=== PATIENT | female | born 1960 | race Caucasian/White ===

== ENCOUNTER 2023-10-01 15:06 | Outpatient (CLI) | payer OTHER, SELFPAY | END 2023-10-01 15:07 | disposition home or self-care (01) | LOC: LKVREF 15:06 | PROVIDERS: PCP Emergency Medicine; Visit Provider Emergency Medicine | DX: I10 Essential (primary) hypertension (principal); E78.5 Hyperlipidemia, unspecified | CPT/HCPCS: 80048 ==

== ENCOUNTER 2023-10-23 13:58 | Outpatient (CLI) | payer OTHER, SELFPAY ==
--- NOTE | 2023-10-23 14:40 | MM_ITS ---
Patient: ELLE BARNHART Facility:?[facility] Patient ID:?[id number] Site Patient ID:?[id number] Site :?[id number] Study:?XRay-Breast Bilateral 3D W/CAD-10/23/2023 11:15:08 AM Ordering Physician:Marcy Final Report: BILATERAL SCREENING MAMMOGRAM WITH COMPUTER-AIDED DETECTION AND TOMOSYNTHESIS TECHNIQUE: CC and MLO views were obtained. These mammographic images have been obtained using full-field digital technique. These mammographic images were interpreted with the benefit of computer-aided detection. Breast Tomosynthesis was used in this interpretation. COMPARISON FILM: No priors available. FINDINGS: The breasts are heterogeneously dense, which may obscure small masses IMPRESSION: There is no radiographic evidence for malignancy. ASSESSMENT: BI-RADS Category 1: Negative RECOMMENDATION: Routine screening mammogram in 1 year. A lay language report of this examination will be provided to the patient. Julián Vasquez M.D. Diagnostic Radiologist [email or web address] BAIRON/huseyin R/ Transcribed: 3:18 p.m. MARY/Dictated by: Julián Vasquez MD @ 11/10/2023 11:38:00 AM Signed by:?Julián Vasquez MD @11/10/2023 3:41:59 PM (Electronic Signature)
== END 2023-10-23 13:59 | disposition home or self-care (01) ==
LOC: MAMMO 13:59
PROVIDERS: PCP Emergency Medicine; Visit Provider Emergency Medicine
DX: Z12.31 Encounter for screening mammogram for malignant neoplasm of breast (principal); R92.2 Inconclusive mammogram
CPT/HCPCS: 77063; 77067

== ENCOUNTER 2024-02-23 08:12 | Outpatient (CLI) | payer OTHER, SELFPAY | END 2024-02-23 08:13 | disposition home or self-care (01) | LOC: NFLDREF 02-25 14:04 | PROVIDERS: PCP Emergency Medicine; Referring Provider Emergency Medicine; Visit Provider Emergency Medicine | DX: Z13.1 Encounter for screening for diabetes mellitus (principal); E78.5 Hyperlipidemia, unspecified | CPT/HCPCS: 80061; 82947 ==

== ENCOUNTER 2024-03-17 13:50 | Outpatient (CLI) | payer OTHER, SELFPAY ==
--- NOTE | 2024-03-17 14:00 | CRLHL7_ITS ---
For Patients: As a result of the Century Cures Act, medical imaging exams and procedure reports are released immediately into your electronic medical record. You may view this report before your referring provider. If you have questions, please contact your health care provider. DXA BONE MINERAL DENSITY STUDY Current height (in): 62. Weight (lb): 130. Menopause age: 45. Ethnicity: White. 1. Have you had a previous hip or vertebral fracture? No. 2. Have you had any fractures during your adult life which did not result from significant trauma (e.g., auto accident)? No. 3. Did either of your parents have a hip fracture? No. 4. Do you smoke? No. 5. Have you ever taken Glucocorticoids? No. 6. Do you have rheumatoid arthritis? No. 7. Do you have secondary osteoporosis? No. 8. Do you drink 3 or more alcoholic drinks per day? No. 9. Are you being treated for osteoporosis? No. 10. Have you ever taken any of the following medications: Actonel, Evista, Fosamax, Miacalcin, Reclast, Boniva, Forteo, HRT (i.e. estrogen/hormone therapy), Protelos, Prolia, Vitamin D, Calcium, other ??? please specify. Yes, Vitamin D. 11. Do you have any of the following medical conditions: Anorexia or bulimia, asthma or emphysema, end stage renal disease, hyperparathyroidism, any seizure disorders, cancer, inflammatory bowel diseases, hysterectomy, other ??? please specify. No. 12. What was your maximum height (inches)? 62. 13. Do you perform weight bearing exercise regularly? Yes. 14. Do you regularly consume dairy products? Yes. 15. Do you drink caffeinated beverages? Yes. 16. At what age did your period start? 11. 17. Are you premenopausal? No. 18. How many full term pregnancies have you had? 2. 19. Have you ever missed your period for more than 6 months in a row (not including or menopause)? No. TECHNIQUE: Bone mineral density study was performed using the [employer]. FINDINGS: The results of the study expressed as bone mineral density (BMD) are as follows: Lumbar spine L1 to L4: BMD: 1.014 g/cm2. T-score: -0.3. Z-score: 1.5. Neck Left: BMD: 0.608 g/cm2. T-score: -2.2. Z-score: -0.6. Right: BMD: 0.660 g/cm2. T-score: -1.7. Z-score: -0.2. Total Left: BMD: 0.743 g/cm2. T-score: -1.6. Z-score: -0.4. Right: BMD: 0.755 g/cm2. T-score: -1.5. Z-score: -0.3. IMPRESSION: Osteopenia. FRAX 10-year Fracture Risk Major Osteoporotic Fracture: 11 percent Hip Fracture: 1.9 percent Reported Risk Factors: [place] () Neck BMD=0.608, BMI=23.8. Julián Vasquez M.D. Diagnostic Radiologist [email or web address] BAIRON/gracia DW/Dictated by: Julián Vasquez MD @ 03/17/2024 4:27:00 PM (Electronically Signed)
== END 2024-03-17 13:51 | disposition home or self-care (01) ==
LOC: RAD 13:51
PROVIDERS: PCP Emergency Medicine; Visit Provider Emergency Medicine
DX: Z78.0 Asymptomatic menopausal state (principal); M85.89 Other specified disorders of bone density and structure, multiple sites
CPT/HCPCS: 77080

== ENCOUNTER 2024-04-15 08:20 | Outpatient (CLI) | payer OTHER, SELFPAY | END 2024-04-15 08:21 | disposition home or self-care (01) | LOC: NFLDREF 04-16 10:32 | PROVIDERS: PCP Emergency Medicine; Referring Provider Emergency Medicine; Visit Provider Internal Medicine Nephrology | DX: N18.9 Chronic kidney disease, unspecified (principal); I10 Essential (primary) hypertension; R53.83 Other fatigue; E55.9 Vitamin D deficiency, unspecified; Z13.1 Encounter for screening for diabetes mellitus; Z13.6 Encounter for screening for cardiovascular disorders | CPT/HCPCS: 80069; 82043; 82306; 82570; 84550; 85610; 87077; 87086; 87186 ==

== ENCOUNTER 2024-05-10 08:39 | Outpatient (CLI) | payer OTHER, SELFPAY ==
--- NOTE | 2024-05-10 09:00 | CRLHL7_ITS ---
For Patients: As a result of the Century Cures Act, medical imaging exams and procedure reports are released immediately into your electronic medical record. You may view this report before your referring provider. If you have questions, please contact your health care provider. INDICATION: CKD. TECHNIQUE: Ultrasound renal and bladder complete. Cook-scale and color Doppler sonographic images were acquired of the kidneys and urinary bladder. COMPARISON: None. FINDINGS: Right kidney: 9.2 cm. Left kidney: 7.2 cm. Status post partial left nephrectomy. Normal echotexture and cortex. No suspicious masses, stones, or hydronephrosis. Small right renal cysts measuring up to 1.7 centimeter. Bladder: Normal in caliber and appearance. Color Doppler images demonstrate bilateral ureteral jets. Prevoid bladder volume of 107 milliliters. Postvoid residual of 25 milliliters. IMPRESSION: Status partial left nephrectomy. Small right renal cysts. Otherwise, normal sonographic appearance of the kidneys Dictated by Johny Calix MD @ 05/10/2024 12:42:52 PM (Electronically Signed)
== END 2024-05-10 08:40 | disposition home or self-care (01) ==
LOC: US 08:40
PROVIDERS: PCP Emergency Medicine; Visit Provider Internal Medicine Nephrology
DX: N18.9 Chronic kidney disease, unspecified (principal); N28.1 Cyst of kidney, acquired
CPT/HCPCS: 76770

== ENCOUNTER 2024-07-26 13:25 | Outpatient (CLI) | payer OTHER, SELFPAY | END 2024-07-26 13:26 | disposition home or self-care (01) | LOC: NFLDREF 07-29 08:09 | PROVIDERS: PCP Emergency Medicine; Referring Provider Emergency Medicine; Visit Provider Internal Medicine Nephrology | DX: I10 Essential (primary) hypertension (principal); N18.9 Chronic kidney disease, unspecified; D64.9 Anemia, unspecified; N13.9 Obstructive and reflux uropathy, unspecified; Z13.1 Encounter for screening for diabetes mellitus; Z13.6 Encounter for screening for cardiovascular disorders; Z13.820 Encounter for screening for osteoporosis | CPT/HCPCS: 80061; 80069; 82043; 82570; 82728; 83540; 83550; 83970; 84550; 87086; 87186 ==

== ENCOUNTER 2024-11-23 12:36 | Outpatient (CLI) | payer OTHER, SELFPAY ==
--- NOTE | 2024-11-23 13:00 | CRLHL7_ITS ---
For Patients: As a result of the Century Cures Act, medical imaging exams and procedure reports are released immediately into your electronic medical record. You may view this report before your referring provider. If you have questions, please contact your health care provider. BILATERAL SCREENING MAMMOGRAM WITH COMPUTER-AIDED DETECTION AND TOMOSYNTHESIS TECHNIQUE: CC and MLO views were obtained. These mammographic images have been obtained using full-field digital technique. These mammographic images were interpreted with the benefit of computer-aided detection. Breast Tomosynthesis was used in this interpretation. COMPARISON FILM: 10/23/23. FINDINGS: The breasts are extremely dense, which lowers the sensitivity of mammography. IMPRESSION: There is no radiographic evidence for malignancy. ASSESSMENT: BI-RADS Category 1: Negative RECOMMENDATION: Routine screening mammogram in 1 year. A lay language report of this examination will be provided to the patient. Julián Vasquez M.D. Diagnostic Radiologist [email or web address] SP/Dictated by: Julián Vasquez MD @ 11/24/2024 1:33:00 PM (Electronically Signed)
== END 2024-11-23 12:37 | disposition home or self-care (01) ==
LOC: MAMMO 12:37
PROVIDERS: PCP Emergency Medicine; Visit Provider Emergency Medicine
DX: Z12.31 Encounter for screening mammogram for malignant neoplasm of breast (principal); R92.343 Mammographic extreme density, bilateral breasts
CPT/HCPCS: 77063; 77067

== ENCOUNTER 2025-02-14 09:45 | Outpatient (CLI) | payer OTHER, SELFPAY | END 2025-02-14 09:46 | disposition home or self-care (01) | LOC: NFLDREF 19:52 | PROVIDERS: PCP Emergency Medicine; Referring Provider Emergency Medicine; Visit Provider Internal Medicine Nephrology | DX: I12.9 Hypertensive chronic kidney disease with stage 1 through stage 4 chronic kidney disease, or unspecified chronic kidney disease (principal); N18.32 Chronic kidney disease, stage 3b; N25.81 Secondary hyperparathyroidism of renal origin; D63.1 Anemia in chronic kidney disease; N30.00 Acute cystitis without hematuria; B96.20 Unspecified Escherichia coli [E. coli] as the cause of diseases classified elsewhere; Z79.899 Other long term (current) drug therapy | CPT/HCPCS: 80069; 82043; 82570; 82607; 82728; 83540; 83550; 83970; 84075; 84460; 84550; 86140; 87086 ==

== ENCOUNTER 2025-03-29 09:41 | Outpatient (CLI) | payer OTHER, SELFPAY | END 2025-03-29 09:42 | disposition home or self-care (01) | PROVIDERS: PCP Emergency Medicine; Visit Provider Emergency Medicine | DX: E78.2 Mixed hyperlipidemia (principal); E55.9 Vitamin D deficiency, unspecified; Z13.1 Encounter for screening for diabetes mellitus | CPT/HCPCS: 80061; 82306; 82947 ==

== ENCOUNTER 2025-04-11 10:00 | Outpatient (CLI) | payer OTHER, SELFPAY | END 2025-04-11 10:01 | disposition home or self-care (01) | LOC: NFLDREF 04-12 15:48 | PROVIDERS: PCP Emergency Medicine; Referring Provider Emergency Medicine; Visit Provider Internal Medicine Nephrology | DX: I12.9 Hypertensive chronic kidney disease with stage 1 through stage 4 chronic kidney disease, or unspecified chronic kidney disease (principal); N18.4 Chronic kidney disease, stage 4 (severe); N30.00 Acute cystitis without hematuria; B96.89 Other specified bacterial agents as the cause of diseases classified elsewhere | CPT/HCPCS: 80069; 82043; 82570; 82728; 83540; 83550; 84550; 87086; 87186 ==

== ENCOUNTER 2025-06-20 09:20 | Outpatient (CLI) | payer OTHER, SELFPAY | END 2025-06-20 09:21 | disposition home or self-care (01) | LOC: NFLDREF 06-22 08:21 | PROVIDERS: PCP Emergency Medicine; Referring Provider Emergency Medicine; Visit Provider Internal Medicine Nephrology | DX: I12.9 Hypertensive chronic kidney disease with stage 1 through stage 4 chronic kidney disease, or unspecified chronic kidney disease (principal); N18.32 Chronic kidney disease, stage 3b; D63.1 Anemia in chronic kidney disease; N30.00 Acute cystitis without hematuria; N25.81 Secondary hyperparathyroidism of renal origin | CPT/HCPCS: 80069; 82043; 82570; 82607; 82728; 82747; 83540; 83550; 83970; 84550; 86140; 87086 ==